=== PATIENT | female | born 1985 ===

== ENCOUNTER 2022-04-08 09:08 | Emergency (ER) | payer SELFPAY ==
[~2022-04-08] VITALS: Ht 167.7 cm; Wt 86.1 kg
[2022-04-08 09:36] LABS: BILIRUBIN,URINE NEGATIVE (NEGATIVE); CLARITY,URINE CLEAR; COLOR,URINE YELLOW; GLUCOSE, URINE (UA) NEGATIVE (NEGATIVE); KETONES,URINE NEGATIVE (NEGATIVE); LEUKOCYTE ESTERASE ,URINE NEGATIVE (NEGATIVE); NITRITE,URINE NEGATIVE (NEGATIVE); PROTEIN,URINE NEGATIVE (NEGATIVE)
[2022-04-08] MEDS ORDERED: KETOROLAC 60 MG/2 ML VIAL IM ONE (09:45)
--- NOTE | 2022-04-08 09:50 | ED GU-Female ---
General Chief Complaint: - Reproductive Stated Complaint: LT SIDE PAIN | PAIN WHEN URINATING Nursing Triage Note: HAVING BILATERAL LOW BACK PAIN GREATER ON THE LEFT FOR ABOUT 2 WEEKS, STATES SHE IS ALSO HAVING "NIGHT SWEATS" THE LAST FEW DAYS AND CHILLING. DENIES N/V ALL OTHER BODY SYMPTOMS WNL Source: patient Exam Limitations: no limitations History of Present Illness Date Seen by Provider: Apr 08, 2022 Time Seen by Provider: 09:37 Initial Comments Patient is a 36-year-old female who presents to the emergency room with a chief complaint of left flank pain. Patient states that she has had this for 2 weeks. She has not taken any medication for the pain. She states it is similar to pain that she has had previously with a "kidney infection". She states her pain worsened in the last 2 days, she is also developed dysuria in the last 2 days. She denies any known history of kidney stone. She states she has had some chills and sweating but has not taken her temperature. She is not nauseous. She is thirsty. She suffers from chronic constipation since her araseli cystectomy. She states movement makes the pain worse. No abnormal vaginal discharge, she is status post hysterectomy. All other review of systems reviewed and negative except as stated. Timing/Duration: other (2 weeks) Severity/Quality: severe, aching Location: left flank Radiation: none Sexual [place] History: not active Modifying Factors: Worsens With Movement Associated Symptoms: diaphoresis Allergies and Home Medications Allergies Coded Allergies: No Known Drug Allergies (Unverified , 04/08/22) Patient Home Medication List Home Medication List Reviewed: Yes Ondansetron (Ondansetron Odt) 4 Mg Tab.rapdis, 4 MG SL Q8H PRN for NAUSEA/VOMITING Prescribed by: LI ZEE on 04/08/22 1149 Oxycodone HCl/Acetaminophen (Percocet 5-325 mg Tablet) 1 Each Tablet, 1 TAB PO Q6H Prescribed by: LI ZEE on 04/08/22 1149 Tamsulosin HCl (Flomax) 0.4 Mg Cap, 0.4 MG PO HS Prescribed by: LI ZEE on 04/08/22 1149 Review of Systems Review of Systems Constitutional: see HPI, chills, diaphoresis EENTM: no symptoms reported Respiratory: no symptoms reported Cardiovascular: no symptoms reported Gastrointestinal: other (left flank pain) Genitourinary: burning : No Musculoskeletal: no symptoms reported Skin: no symptoms reported All Other Systemes Reviewed Negative Unless Noted: Yes Past Lrdgity-Rzyzpc-Kickce Hx Patient Social History Tobacco Use?: Yes Tobacco type used: Cigarettes Smoking Status: Current Someday Smoker Use of E-Cig and/or Vaping dev: No Substance use?: No Alcohol Use?: No Pt feels they are or have been: No Immunizations Up To Date Influenza Vaccine Up-to-Date: No; Not Current Past Medical History Surgery/Hospitalization HX: PARTIAL HYSTER, CHOLECYSTECTOMY, APPENDECTOMY Physical Exam Vital Signs Vital Signs - First Documented 04/08/22 09:19 Temp 36.0 Pulse 85 Resp 18 B/P (MAP) 208/122 (150) Pulse Ox 100 O2 Delivery Room Air Capillary Refill : Less Than 3 Seconds Height, Weight, BMI Height: '" Weight: lbs. oz. kg; 30.00 BMI Method: General Appearance: WD/WN, mild distress HEENT: PERRL/EOMI Cardiovascular: regular rate, rhythm, no murmur, other (Hypertensive) Respiratory: lungs clear, normal breath sounds, no respiratory distress, no accessory muscle use Gastrointestinal: normal bowel sounds, non tender, soft Back: CVA tenderness (L) Extremities: normal range of motion, non-tender, normal inspection, no pedal edema Neurologic/Psychiatric: alert, normal mood/affect, oriented x 3 Skin: normal color, warm/dry Progress/Results/Core Measures Suspected Sepsis SIRS Temperature: Pulse: 85 Respiratory Rate: 18 Blood Pressure 208 /122 Mean: 150 Laboratory Tests 04/08/22 10:28: Creatinine 0.85 Results/Orders Lab Results Laboratory Tests Test 04/08/22 09:20 04/08/22 10:28 Range/Units Urine Color YELLOW Urine Clarity CLEAR Urine pH 6.0 5-9 Urine Specific [place] >=1.030 1.016-1.022 Urine Protein NEGATIVE NEGATIVE Urine Glucose (UA) NEGATIVE NEGATIVE Urine Ketones NEGATIVE NEGATIVE Urine Nitrite NEGATIVE NEGATIVE Urine Bilirubin NEGATIVE NEGATIVE Urine Urobilinogen 0.2 < = 1.0 MG/DL Urine Leukocyte Esterase NEGATIVE NEGATIVE Urine RBC (Auto) TRACE-I H NEGATIVE Urine RBC 0-2 /HPF Urine WBC NONE /HPF Urine Squamous Epithelial Cells 2-5 /HPF Urine Crystals NONE /LPF Urine Bacteria NEGATIVE /HPF Urine Casts NONE /LPF Urine Mucus SMALL H /LPF Urine Culture Indicated NO Sodium Level 139 135-145 MMOL/L Potassium Level 3.8 3.6-5.0 MMOL/L Chloride Level 103 98-107 MMOL/L Carbon Dioxide Level 26 21-32 MMOL/L Anion Gap 10 5-14 MMOL/L Blood Urea Nitrogen 14 7-18 MG/DL Creatinine 0.85 0.60-1.30 MG/DL Estimat Glomerular Filtration Rate 90 BUN/Creatinine Ratio 16 Glucose Level 102 70-105 MG/DL Calcium Level 8.7 8.5-10.1 MG/DL My Orders Orders - LI ZEE MD Urinalysis (04/08/22 09:28) Urine Culture (04/08/22 09:28) Ketorolac Injection (Toradol Injection) (04/08/22 09:45) Abdomen/Kub 1view (04/08/22 10:00) Ct Abd/Pelvis Wo(Kidney Stone) (04/08/22 10:00) Ed Iv/Invasive Line Start (04/08/22 10:00) Basic Metabolic Panel (04/08/22 10:00) Ns Iv 1000 Ml (Sodium Chloride 0.9%) (04/08/22 10:00) Morphine Injection (Morphine Injection (04/08/22 10:42) Ondansetron Injection (Zofran Injectio (04/08/22 10:45) Medications Given in ED Current Medications Medications Dose Ordered Sig/Yan Route Start Time Stop Time Status Last Admin Dose Admin Ketorolac Tromethamine 60 mg ONCE ONCE IM 04/08/22 09:45 04/08/22 09:46 DC 04/08/22 10:17 60 MG Ondansetron HCl 4 mg ONCE ONCE IVP 04/08/22 10:45 04/08/22 10:46 DC 04/08/22 10:56 4 MG Vital Signs/I&O 04/08/22 09:19 Temp 36.0 Pulse 85 Resp 18 B/P (MAP) 208/122 (150) Pulse Ox 100 O2 Delivery Room Air Capillary Refill : Less Than 3 Seconds Blood Pressure Mean: 150 Progress Note : Time: 11:50 Progress Note Patient seen and evaluated, 36-year-old with left flank pain x2 weeks. Initial evaluation was with urinalysis which revealed some microscopic hematuria. Patient continued to have increasing left flank pain and therefore IV was placed with renal function panel, KUB and CT scan renal stone protocol. Patient was found to have a 5 mm left UVJ stone. No hydronephrosis, no other acute pathology. Stone is visualized on KUB. Patient's urine shows no signs of infection. She received morphine and Zofran for pain as well as 60 mg of Toradol IM. Renal function is normal. She is pain-free after morphine. She is comfortable with discharge to home. She has been advised to hydrate, she will be given Percocet, Zofran and Flomax for home. She is also advised if she gets a fever greater than 101 to come back to the emergency room if she does pass her stone. Patient verbalized understanding. She is comfortable with the plan of care. All questions are sought and answered. Diagnostic Imaging Diagonstic Imaging: Xray Comments [facility], [place], [place] NAME: [facility]ANDEN [facility] REC#: [id number] PT STATUS: REG ER : 1985 PHYSICIAN: LI ZEE MD ADMIT DATE: 04/08/22/ER Draft Date of Exam:04/08/22 ABDOMEN/KUB 1VIEW INDICATION: Left flank pain. FINDINGS: There is a small calculus noted region of the distal left ureter near the bladder. There are phleboliths present as well. No calculi are seen over the kidneys. IMPRESSION: Small left distal ureteral calculus. Dictated on workstation # [id number] Dict: 04/08/22 1054 Trans: 04/08/22 1057 [facility] [id number] Interpreted by: BERNADINE WEBB MD Electronically signed by: Diagonstic Imaging: CT [facility] [place] [place] NAME: [facility]BRANDEN [facility] REC#: [id number] PT STATUS: REG ER : 1985 PHYSICIAN: LI ZEE MD ADMIT DATE: 04/08/22/ER Draft Date of Exam:04/08/22 CT ABD/PELVIS WO(KIDNEY STONE) PROCEDURE: CT urinary tract, rule out kidney stone. TECHNIQUE: Multiple contiguous axial images were obtained through the abdomen and pelvis without the use of intravenous contrast. Auto Exposure Controls were utilized during the CT exam to meet ALARA standards for radiation dose reduction. INDICATION: Flank pain. Kidney stone. FINDINGS: The kidneys show no evidence of obstruction. No renal calculi. The ureters are not dilated. There is a 5 mm calculus in the distal left ureter at the level of the trigone. There are several phleboliths present. The bladder is decompressed. The lung bases are clear. The liver appears normal. The gallbladder is absent. The bile ducts are not dilated. The stomach and small bowel are not distended. There is a moderate amount of stool present throughout the colon. The appendix is absent. No evidence of colitis or diverticulitis. There is no free air or free fluid. No intra-abdominal adenopathy. The aorta is normal. No bony abnormalities. IMPRESSION: Nonobstructing 5 mm calculus in the distal left ureter. No calculi are seen within the kidneys. No hydronephrosis. Dictated on workstation # [id number] Dict: 04/08/22 1038 Trans: 04/08/22 1043 [id number] Interpreted by: BERNADINE WEBB MD Electronically signed by: Departure Impression Primary Impression: Kidney stone on left side Additional Impression: High blood pressure Qualified Codes: I10 - Essential (primary) hypertension Disposition: 01 HOME, SELF-CARE Condition: Improved Departure-Patient Inst. Decision time for Depature: 11:46 Referrals: [facility] [place]YSIC[place] (PCP) Primary Care Physician Patient Instructions: High Blood Pressure ED, Kidney Stones in Adults Add. Discharge Instructions: Drink lots of fluids to stay well-hydrated and help flush out your kidney stone. Strain your urine every time you pee. Take the oxycodone/acetaminophen 5 mg tablets every 6 hours as needed for severe pain. Take a daily stool softeners if you are having to take this medication. This is a narcotic. Do not drive and take this medication. It is very addictive. Take only when necessary. Flomax 0.4 mg every night to help increase urinary flow until you have passed your stone If you develop a fever, worsening pain, vomiting so that you cannot hold down your medications please come back to the emergency room for reevaluation. Scripts Tamsulosin HCl (Flomax) 0.4 Mg Cap 0.4 MG PO HS for 14 Days, #14 CAP Prov: LI ZEE MD 04/08/22 Ondansetron (Ondansetron Odt) 4 Mg Tab.rapdis 4 MG SL Q8H PRN for NAUSEA/VOMITING, #15 TAB Prov: LI ZEE MD 04/08/22 Oxycodone HCl/Acetaminophen (Percocet 5-325 mg Tablet) 1 Each Tablet 1 TAB PO Q6H for PAIN-MODERATE MDD 6 TABS, #12 TAB Prov: LI ZEE MD 04/08/22 Work/School Note: Work Release Form Date Seen in the Emergency Department: Apr 08, 2022 Return to Work: Apr 10, 2022 LI ZEE MD Apr 08, 2022 09:50
[2022-04-08 09:55] LABS: BACTERIA,URINE NEGATIVE /HPF; RBC,URINE 0-2 /HPF
[2022-04-08] MEDS ORDERED: NS IV 1000 ML 1,000 ML IV SCH (10:00)
[2022-04-08] MEDS ORDERED: morphine INJ 10 MG/ML 1ML (SYR OR VIAL) IVP STA (10:42)
--- NOTE | 2022-04-08 10:44 | Diagnostic Imaging Report ---
PROCEDURE: CT urinary tract, rule out kidney stone. TECHNIQUE: Multiple contiguous axial images were obtained through the abdomen and pelvis without the use of intravenous contrast. Auto Exposure Controls were utilized during the CT exam to meet ALARA standards for radiation dose reduction. INDICATION: Flank pain. Kidney stone. FINDINGS: The kidneys show no evidence of obstruction. No renal calculi. The ureters are not dilated. There is a 5 mm calculus in the distal left ureter at the level of the trigone. There are several phleboliths present. The bladder is decompressed. The lung bases are clear. The liver appears normal. The gallbladder is absent. The bile ducts are not dilated. The stomach and small bowel are not distended. There is a moderate amount of stool present throughout the colon. The appendix is absent. No evidence of colitis or diverticulitis. There is no free air or free fluid. No intra-abdominal adenopathy. The aorta is normal. No bony abnormalities. IMPRESSION: Nonobstructing 5 mm calculus in the distal left ureter. No calculi are seen within the kidneys. No hydronephrosis. Dictated by: Dictated on workstation # [id number]
[2022-04-08] MEDS ORDERED: ONDANSETRON 4 MG/2 ML (SDV) Z0FRAN IVP ONE (10:45)
--- NOTE | 2022-04-08 10:57 | Diagnostic Imaging Report ---
INDICATION: Left flank pain. FINDINGS: There is a small calculus noted region of the distal left ureter near the bladder. There are phleboliths present as well. No calculi are seen over the kidneys. IMPRESSION: Small left distal ureteral calculus. Dictated by: Dictated on workstation # [id number]
[2022-04-08 11:05] LABS: CALCIUM 8.7 MG/DL (8.5-10.1); CREATININE SERUM 0.85 MG/DL (0.60-1.30); POTASSIUM 3.8 MMOL/L (3.6-5.0)
[2022-04-08] MEDS ORDERED: TMSL.4C PO (11:49)
[2022-04-08] MEDS ORDERED: ONDA4TAB11 SL (11:49)
[2022-04-08] MEDS ORDERED: OXYC1TAB87 PO (11:49)
[2022-04-08 12:03] VITALS: BP 202/118
== END 2022-04-08 12:03 | disposition home or self-care (01) ==
LOC: ER 09:14
DX: N20.0 Calculus of kidney (principal); I10 Essential (primary) hypertension; F17.210 Nicotine dependence, cigarettes, uncomplicated; Z28.310 Unvaccinated for COVID-19
CPT/HCPCS: 36415; 74018; 74176; 80048; 81000; 87088

== ENCOUNTER 2022-04-27 03:59 | Emergency (ER) | payer SELFPAY ==
[~2022-04-27] VITALS: Ht 167 cm; Wt 86.1 kg
[~2022-04-27 03:59] MED LIST: ONDA4TAB11 SL; OXYC1TAB87 PO; TMSL.4C PO
[2022-04-27] MEDS ORDERED: LACTATED RINGERS 1,000 ML IV ONE (04:15)
[2022-04-27] MEDS ORDERED: KETOROLAC 30 MG/ML VIAL IVP ONE (04:15)
[2022-04-27 04:20] LABS: BASOPHILS % (AUTO) 0 % (0-10); EOSINOPHILS # (AUTO) 0.1 10^3/uL (0.0-0.3); EOSINOPHILS % (AUTO) 2 % (0-10); HEMATOCRIT 44 % (35-52); HEMOGLOBIN 14.4 g/dL (11.5-16.0); LYMPHOCYTES # (AUTO) 2.1 10^3/uL (1.0-4.0); LYMPHOCYTES % (AUTO) 26 % (12-44); MEAN CORPUSCULAR HEMOGLOBIN 29 pg (25-34); MEAN CORPUSCULAR HGB CONC 33 g/dL (32-36); MEAN CORPUSCULAR VOLUME 89 fL (80-99); MEAN PLATELET VOLUME 9.9 fL (9.0-12.2); MONOCYTES # (AUTO) 0.5 10^3/uL (0.0-1.0); MONOCYTES % (AUTO) 6 % (0-12); NEUTROPHILS # (AUTO) 5.2 10^3/uL (1.8-7.8); NEUTROPHILS % (AUTO) 66 % (42-75); PLATELET COUNT 334 10^3/uL (130-400); WHITE BLOOD COUNT 7.9 10^3/uL (4.3-11.0)
--- NOTE | 2022-04-27 04:24 | ED GU-Female ---
General Chief Complaint: Back Problems Stated Complaint: BACK PAIN Source: patient, old records (HINA JEAN DO) History of Present Illness Date Seen by Provider: Apr 27, 2022 Time Seen by Provider: 04:09 Initial Comments PT ARRIVES VIA POV C/O LEFT FLANK PAIN RADIATING TO LLQ FOR THE PAST FEW WEEKS C/O PAIN ON URINATION NO NAUSEA/VOMITING/DIARRHEA OR CONSTIPATION HAS NOT CHECKED TEMP AT ANY TIME. STATES SHE SWEATS AT NIGHT NO NOTED HEMATURIA NO VAGINAL DISCHARGE OR BLEEDING. PT WAS SEEN HERE FOR THE FIRST TIME ON 04/08/22 FOR THIS SAME PROBLEM AND WAS DX WITH A KIDNEY STONE. SHE REPORTED THAT HER SYMPTOMS HAD BEEN GOING ON FOR 2 WEEKS AT THE TIME OF THAT VISIT SHE WAS GIVEN RX'S FOR PAIN MEDICATION-OXYCODONE, FLOMAX AND ZOFRAN AND ADVISED TO FOLLOW UP WITH [facility]. SHE HAS NOT TAKEN ANYTHING FOR PAIN RECENTLY SHE HAS NOT ATTEMPTED TO FOLLOW UP WITH ANYONE AT ANYTIME, INSTRUCTED SYMPTOMS ARE NO DIFFERENT TONIGHT--STATES "I JUST GOT WORRIED BECAUSE I HAVEN'T PASSED IT" SHE DENIES ANY PRIOR HISTORY OF KIDNEY STONES STATES SHE WAS HOSPITALIZED A COUPLE OF YEARS AGO IN [place] WITH A "KIDNEY INFECTION" PT HAS HAD PRIOR HYSTERECTOMY WITH USO, CHOLECYSTECTOMY, APPENDECTOMY, BLADDER SUSPENSION AND VAGINAL REPAIR. PT JUST MOVED HERE 3 WEEKS AGO FROM [place] SHE DID NOT HAVE A DR. THERE EITHER (HINA JEAN DO) Initial Comments Agree with H & P (RUPERT DUMONT MD) Allergies and Home Medications Allergies Coded Allergies: No Known Drug Allergies (Unverified , 04/08/22) Patient Home Medication List Home Medication List Reviewed: Yes (RUPERT DUMONT MD) Ciprofloxacin HCl (Ciprofloxacin HCl) 500 Mg Tablet, 500 MG PO BID Prescribed by: HINA JEAN on 04/27/22 0506 Hydrocodone/Acetaminophen (Hydrocodone-Acetamin 5-325 mg) 5 Mg-325 Mg Tablet, 1 EACH PO Q4-6 HOURS PRN for PAIN Prescribed by: HINA JEAN on 04/27/22 0506 Ketorolac Tromethamine (Ketorolac Tromethamine) 10 Mg Tablet, 10 MG PO Q6H Prescribed by: HINA JEAN on 04/27/22 0506 Ondansetron (Ondansetron Odt) 4 Mg Tab.rapdis, 4 MG SL Q8H PRN for NAUSEA/VOMITING Prescribed by: LI ZEE on 04/08/22 1149 Ondansetron (Ondansetron Odt) 4 Mg Tab.rapdis, 4 MG PO Q4H Prescribed by: HINA JEAN on 04/27/22 0506 Oxycodone HCl/Acetaminophen (Percocet 5-325 mg Tablet) 1 Each Tablet, 1 TAB PO Q6H Prescribed by: LI ZEE on 04/08/22 1149 Tamsulosin HCl (Flomax) 0.4 Mg Cap, 0.4 MG PO HS Prescribed by: LI ZEE on 04/08/22 1149 Tamsulosin HCl (Flomax) 0.4 Mg Cap, 0.4 MG PO DAILY Prescribed by: HINA JEAN on 04/27/22 0506 Review of Systems Review of Systems Constitutional: see HPI, diaphoresis EENTM: no symptoms reported Respiratory: no symptoms reported Cardiovascular: no symptoms reported Gastrointestinal: see HPI, abdominal pain; No loss of appetite, No nausea, No vomiting Genitourinary: see HPI, dysuria, flank pain Musculoskeletal: see HPI, back pain Skin: no symptoms reported Psychiatric/Neurological: No Symptoms Reported Endocrine: No Symptoms Reported Hematologic/Lymphatic: No Symptoms Reported (HINA JEAN DO) Past [id number]-[id number] Hx Patient Social History Tobacco Use?: Yes Tobacco type used: Cigarettes Smoking Status: Current Someday Smoker Substance use?: Yes (DENIEWS) Substance type: Amphetamines, Methamphetamine Additional substance use comme: DENIES BUT UDS + FOR METHAMP HETAMINES/AMPHETAMINES 04/27/22 Alcohol Use?: No (DENIES) Pt feels they are or have been: No (HINA JEAN DO) Immunizations Up To Date First/Initial COVID19 Vaccinat: na (HINA JEAN DO) Past Medical History Surgery/Hospitalization HX: PARTIAL HYSTER, CHOLECYSTECTOMY, APPENDECTOMY, BLADDER SLING, VAGINAL REPAIR Surgeries: Yes Appendectomy, Bladder Surgery, Gallbladder, Hysterectomy, Oophorectomy Respiratory: No Cardiac: No Neurological: No HONEY BLENDER History: Hysterectomy Genitourinary: Yes Kidney Infection, Kidney Stones Gastrointestinal: No Musculoskeletal: No Endocrine: No HEENT: No Cancer: No Psychosocial: No Integumentary: No Blood Disorders: No (HINA JEAN DO) Family Medical History PAST SURGICAL HISTORY: -APPENDECTOMY -CHOLECYSTECTOMY -HYSTERECTOMY WITH UNILATERAL SALPINGO-OOPHORECTOMY ( DOES NOT KNOW WHICH OVARY WAS REMOVED) -BLADDER SLING/SUSPENSION -VAGINAL REPAIR (HINA JE[place] DO) Physical Exam Vital Signs Vital Signs - First Documented 04/27/22 04:16 Temp 37.0 Pulse 102 Resp 16 B/P (MAP) 181/115 (137) Pulse Ox 100 O2 Delivery Room Air (RUPERT DUMONT MD) Vital Signs Capillary Refill : (HINA JEAN DO) Height, Weight, BMI Height: '" Weight: lbs. oz. kg; 30.00 BMI Method: General Appearance: WD/WN, no apparent distress, other (FULL, HEAVY MAKE-UP AND VERY HEAVY PERFUME; VERY UNDER-DRESSED FOR THE WEATHER--TEMP OUTSIDE IS IN THE 20'S. MARKEDLY EXAGGERATED PAIN RESPONSE ) Cardiovascular: normal peripheral pulses, regular rate, rhythm, no murmur Respiratory: normal breath sounds, no respiratory distress, no accessory muscle use Gastrointestinal: normal bowel sounds, soft; No distended, No guarding, No rebound; tenderness (LLQ, LEFT MID ABDOMEN AND LEFT FLANK. ); No hernia, No mass Back: no vertebral tenderness, CVA tenderness (L) Extremities: normal inspection, normal capillary refill Neurologic/Psychiatric: no motor/sensory deficits, alert, oriented x 3 Skin: normal color (), warm/dry; No rash (HINA JEAN DO) Progress/Results/Core Measures Suspected Sepsis SIRS Temperature: Pulse: Respiratory Rate: Laboratory Tests 04/27/22 04:10: White Blood Count 7.9 Blood Pressure / Mean: Laboratory Tests 04/27/22 04:10: Creatinine 0.88, Platelet Count 334, Total Bilirubin 0.4 (HINA JEAN DO) Results/Orders Lab Results Laboratory Tests Test 04/27/22 04:10 04/27/22 04:12 Range/Units White Blood Count 7.9 4.3-11.0 10^3/uL Red Blood Count 4.94 3.80-5.11 10^6/uL Hemoglobin 14.4 11.5-16.0 g/dL Hematocrit 44 35-52 % Mean Corpuscular Volume 89 80-99 fL Mean Corpuscular Hemoglobin 29 25-34 pg Mean Corpuscular Hemoglobin Concent 33 32-36 g/dL Red Cell Distribution Width 13.9 10.0-14.5 % Platelet Count 334 130-400 10^3/uL Mean Platelet Volume 9.9 9.0-12.2 fL Immature Granulocyte % (Auto) 0 % Neutrophils (%) (Auto) 66 42-75 % Lymphocytes (%) (Auto) 26 12-44 % Monocytes (%) (Auto) 6 0-12 % Eosinophils (%) (Auto) 2 0-10 % Basophils (%) (Auto) 0 0-10 % Neutrophils # (Auto) 5.2 1.8-7.8 10^3/uL Lymphocytes # (Auto) 2.1 1.0-4.0 10^3/uL Monocytes # (Auto) 0.5 0.0-1.0 10^3/uL Eosinophils # (Auto) 0.1 0.0-0.3 10^3/uL Basophils # (Auto) 0.0 0.0-0.1 10^3/uL Immature Granulocyte # (Auto) 0.0 0.0-0.1 10^3/uL Sodium Level 140 135-145 MMOL/L Potassium Level 3.7 3.6-5.0 MMOL/L Chloride Level 104 98-107 MMOL/L Carbon Dioxide Level 27 21-32 MMOL/L Anion Gap 9 5-14 MMOL/L Blood Urea Nitrogen 13 7-18 MG/DL Creatinine 0.88 0.60-1.30 MG/DL Estimat Glomerular Filtration Rate 86 BUN/Creatinine Ratio 15 Glucose Level 94 70-105 MG/DL Calcium Level 9.0 8.5-10.1 MG/DL Corrected Calcium 8.6 8.5-10.1 MG/DL Total Bilirubin 0.4 0.1-1.0 MG/DL Aspartate Amino Transf (AST/SGOT) 17 5-34 U/L Alanine Aminotransferase (ALT/SGPT) 14 0-55 U/L Alkaline Phosphatase 65 40-136 U/L Total Protein 8.3 H 6.4-8.2 GM/DL Albumin 4.5 3.2-4.5 GM/DL Urine Color YELLOW Urine Clarity CLEAR Urine pH 6.5 5-9 Urine Specific [place] 1.025 H 1.016-1.022 Urine Protein NEGATIVE NEGATIVE Urine Glucose (UA) NEGATIVE NEGATIVE Urine Ketones NEGATIVE NEGATIVE Urine Nitrite NEGATIVE NEGATIVE Urine Bilirubin NEGATIVE NEGATIVE Urine Urobilinogen 0.2 < = 1.0 MG/DL Urine Leukocyte Esterase NEGATIVE NEGATIVE Urine RBC (Auto) TRACE-I H NEGATIVE Urine RBC 0-2 /HPF Urine WBC NONE /HPF Urine Squamous Epithelial Cells 10-25 H /HPF Urine Crystals NONE /LPF Urine Bacteria FEW H /HPF Urine Casts NONE /LPF Urine Mucus MODERATE H /LPF Urine Culture Indicated NO Urine Opiates Screen NEGATIVE NEGATIVE Urine Oxycodone Screen NEGATIVE NEGATIVE Urine Methadone Screen NEGATIVE NEGATIVE Urine Propoxyphene Screen NEGATIVE NEGATIVE Urine Barbiturates Screen NEGATIVE NEGATIVE Ur Tricyclic Antidepressants Screen NEGATIVE NEGATIVE Urine Phencyclidine Screen NEGATIVE NEGATIVE Urine Amphetamines Screen POSITIVE H NEGATIVE Urine Methamphetamines Screen POSITIVE H NEGATIVE Urine Benzodiazepines Screen NEGATIVE NEGATIVE Urine Cocaine Screen NEGATIVE NEGATIVE Urine Cannabinoids Screen NEGATIVE NEGATIVE (RUPERT DUMONT MD) Medications Given in ED Current Medications Medications Dose Ordered Sig/Yan Route Start Time Stop Time Status Last Admin Dose Admin Acetaminophen/ Hydrocodone Bitart 1 ea Q4H PRN PO 04/27/22 06:15 04/27/22 06:14 1 EA Ceftriaxone Sodium/Dextrose 50 ml @ 100 mls/hr ONCE ONCE IV 04/27/22 05:00 04/27/22 05:29 DC 04/27/22 05:02 100 MLS/HR Fentanyl Citrate 50 mcg ONCE ONCE IVP 04/27/22 05:00 04/27/22 05:01 DC 04/27/22 05:00 50 MCG Fentanyl Citrate 50 mcg ONCE ONCE IVP 04/27/22 06:15 04/27/22 06:16 DC 04/27/22 06:14 50 MCG Ketorolac Tromethamine 30 mg ONCE ONCE IVP 04/27/22 04:15 04/27/22 04:16 DC 04/27/22 04:18 30 MG Lactated Ringer's 1,000 ml @ 0 mls/hr Q0M ONCE IV 04/27/22 04:15 04/27/22 04:16 DC 04/27/22 04:19 0 MLS/HR Ondansetron HCl 4 mg ONCE ONCE IVP 04/27/22 05:45 04/27/22 05:46 DC 04/27/22 05:39 4 MG (RUPERT DUMONT MD) Vital Signs/I&O 04/27/22 04:16 Temp 37.0 Pulse 102 Resp 16 B/P (MAP) 181/115 (137) Pulse Ox 100 O2 Delivery Room Air (RUPERT DUMONT MD) Vital Signs/I&O Capillary Refill : (HINA JEAN DO) Progress Note : Progress Note GIVEN: -IV FLUIDS -TORADOL--NO RELIEF -FENTANYL -ROCEPHIN -FLOMAX MARKED DELAY IN OBTAINING CT REPORT INITIALLY SENT TO [facility], BUT HAD NOT BEEN EVEN BEEN ASSIGNED TO A RADIOLOGIST BY 607, SO NURSERYPERSON WILL SEND TO [facility] TO READ. REVIEWED ALL TEST RESULTS, NEED FOR FOLLOW UP WITH UROLOGIST, NEED TO ESTABLISH CARE WITH PCP FOR FURTHER EVALUATION OF BLOOD PRESSURE, AND RETURN PRECAUTIONS LIST OF LOCAL PROVIDERS SENT HOME WITH PT. DR. GONZALEZ IS NO LONGER TAKING NEW PATIENTS AND WILL BE RETIRING NEXT WEEK, ADVISED PT TO SEEK UROLOGY CARE AT [facility] OR [facility]. (HINA JEAN DO) Progress Note : Progress Note Signout from Dr. JEAN: Explained to patient in that the calcification seen is a phlebolith, and there are no stones as per radiology report. Offered patient a CT abdomen with contrast but she refused because she does not want to have contrast and also does not want to have another CT scan. Patient states that she is having some mild dysuria, so we will go ahead and agree with plan for antibiotics as outpatient. Advised patient to follow-up with urology as mentioned by Dr. JEAN, and also to follow-up with her PCP within the next 3 to 5 days. Discussed drug use with patient, and explained to her that her urine is positive for methamphetamines. Patient is denying that she took methamphetamines and states that she was in the presence of people who may have been smoking it. I also explained to the patient that drug use can trigger abdominal pain as well. Advised adequate water intake. -The patient was seen in the ED, and treated appropriately to presentation at a specific point in time. Patient is informed that there is a possibility that disease and illness can evolve and change in acuity rapidly or slowly after patient is discharged from the ER. Precautionary advice given to the patient for immediate return to ER if symptoms worsen or do not resolve, and to seek emergency care sooner rather than later. Pt also advised on the importance of PCP follow up and compliance with management and follow up plan with PCP and/or specialist, as this is part of the management plan. Pt verbally expressed understanding. (RUPERT DUMONT MD) Diagnostic Imaging Comments KUB--CALCIFICATION IN LEFT PELVIS, PENDING RADIOLOGIST REVIEW CT ABDOMEN/PELVIS--PER [facility] VIA FAX AT -LEFT DISTAL URETERAL CALCULUS Reviewed: Reviewed by Me (HINA EJAN DO) Diagonstic Imaging: Xray, CT Plain Films/CT/US/NM/MRI: abdomen Comments [facility], [place] NAME: BRANDEN ROCHA [facility] REC#: [id number] PT STATUS: REG ER : 1985 PHYSICIAN: HINA JEAN DO ADMIT DATE: 04/27/22/ER Draft Date of Exam:04/27/22 CT ABD/PELVIS WO(KIDNEY STONE) CLINICAL INDICATION: Patient with flank pain. Stone suspected. Exam: CT exam of the abdomen and pelvis is performed without IV or oral contrast using stone protocol. Coronal and sagittal reformatted images were created. Auto Exposure Controls were utilized during the CT exam to meet ALARA standards for radiation dose reduction. Comparisons: CT scan of the abdomen and pelvis without contrast dated 04/08/2022. Findings: Visualized lung bases: Unremarkable. Liver: Unremarkable as visualized. Gallbladder: Cholecystectomy changes are seen. Pancreas: Unremarkable as visualized. Spleen: Unremarkable as visualized. Adrenal glands: Unremarkable. Kidneys/ ureters: It appears as though the calcifications in the pelvis region are outside of the confines of the distal ureters and suspected to represent phleboliths. There are no new stones involving the kidneys or ureters seen. Both kidneys are otherwise unremarkable. There is no hydronephrosis or periureteral perinephric fat stranding. Aorta: Unremarkable as visualized. Intraabdominal/ retroperitoneal contents: Unremarkable. Intestines: Unremarkable as visualized. Appendix: Surgically absent. Bladder: Unremarkable as visualized. Pelvic organs: Unremarkable as visualized. Extra abdominal/ pelvis regions: Unremarkable. Abdominal wall: Unremarkable. Bones: Unremarkable. Impression: 1: There are no stones seen in the distal ureters. Calcifications in the pelvis is suspected to represent phleboliths. Kidneys and ureters show no significant abnormality on this exam. CT scan of the abdomen and pelvis with contrast and delayed imaging would help better evaluate if there is continued concern for stones or blood in urine. 2: Otherwise, there is no other concern for interval acute abnormality. 3: The remainder of this exam shows no significant interval change compared to the prior study of comparison. Dictated on workstation # [id number] Dict: 04/27/2216 Trans: 04/27/22623 CHANTELLE [id number] Interpreted by: FLAVIO OLIVO MD Electronically signed by: [employer] [facility] [place], [place] NAME: ROCHABRANDEN [facility] REC#: [id number] PT STATUS: REG ER : 1985 PHYSICIAN: HINA JEAN DO ADMIT DATE: 04/27/22/ER Draft Date of Exam:04/27/22 ABDOMEN/KUB 1VIEW CLINICAL INDICATION: Patient with calcification in the left pelvis. EXAM: X-ray of the abdomen with multiple supine and upright views. COMPARISON: X-ray of the abdomen dated 04/08/2022. FINDINGS: There is a nonobstructed bowel gas pattern. There is no evidence of abdominal free air. There is a small-to- moderate amount of stool throughout the abdomen. Surgical clips are seen overlying the right upper quadrant which could be related to cholecystectomy changes. There are small calcifications involving left and right sides of the pelvis which is not significantly changed in the interim. The visualized bones and extra abdominal soft tissues are unremarkable. IMPRESSION: There are several calcifications in the right and left sides of the pelvis, which have not significantly changed in the interim. These may represent phleboliths, but if there is concern for stone in distal ureter, CT scan would better evaluate. Dictated on workstation # [id number] Dict: 04/27/22607 Trans: 04/27/22612 CHANTELLE [id number] Interpreted by: FLAVIO OLIVO MD Electronically signed by: [employer] [facility], [facility]. [place], [place] NAME: BRANDEN ROCHA [facility] REC#: [id number] PT STATUS: REG ER : 1985 PHYSICIAN: HINA JEAN DO ADMIT DATE: 04/27/22/ER Draft Date of Exam:04/27/22 ABDOMEN/KUB 1VIEW CLINICAL INDICATION: Patient with calcification in the left pelvis. EXAM: X-ray of the abdomen with multiple supine and upright views. COMPARISON: X-ray of the abdomen dated 04/08/2022. FINDINGS: There is a nonobstructed bowel gas pattern. There is no evidence of abdominal free air. There is a small-to- moderate amount of stool throughout the abdomen. Surgical clips are seen overlying the right upper quadrant which could be related to cholecystectomy changes. There are small calcifications involving left and right sides of the pelvis which is not significantly changed in the interim. The visualized bones and extra abdominal soft tissues are unremarkable. IMPRESSION: There are several calcifications in the right and left sides of the pelvis, which have not significantly changed in the interim. These may represent phleboliths, but if there is concern for stone in distal ureter, CT scan would better evaluate. Dictated on workstation # [id number] Dict: 04/27/2208 Trans: 04/27/22 0613 CHANTELLE [id number] Interpreted by: FLAVIO OLIVO MD Electronically signed by: (RUPERT DUMONT MD) Departure Impression Primary Impression: Methamphetamine use Additional Impression: Phlebolithiasis Disposition: 01 HOME, SELF-CARE Condition: Stable Departure-Patient Inst. Referrals: NO,LOCAL PHYSICIAN (PCP/Family) Primary Care Physician Patient Instructions: DASH Diet, Drug Abuse and Drug Addiction (DC), High Blood Pressure ED, How to Strain Your Urine, Methamphetamine Add. Discharge Instructions: STRAIN ALL URINE, RETURN ANY STONES TO UROLOGIST OFFICE NO DRUGS LOTS OF CLEAR LIQUIDS FOLLOW UP WITH UROLOGIST OF CHOICE THIS WEEK FOR FURTHER CARE. YOU MAY TRY UROLOLGY SERVICES AT [facility], [facility] IN [place], [facility] IN [place], OR ANY FACILITY OF CHOICE. CALL THIS MORNING TO MAKE AN APPOINTMENT YOU NEED TO FOLLOW UP WITH THIS WEEK TO ESTABLISH PRIMARY CARE FOR FURTHER EVALUATION OF YOUR BLOOD PRESSURE All discharge instructions reviewed with patient and/or family. Voiced understanding. Scripts Ondansetron (Ondansetron Odt) 4 Mg Tab.rapdis 4 MG PO Q4H for Nausea/Vomiting, #10 TAB Prov: HINA JEAN DO 04/27/22 Hydrocodone/Acetaminophen (Hydrocodone-Acetamin 5-325 mg) 5 Mg-325 Mg Tablet 1 EACH PO Q4-6 HOURS PRN for PAIN, #10 TAB Prov: HINA JEAN DO 04/27/22 Ketorolac Tromethamine (Ketorolac Tromethamine) 10 Mg Tablet 10 MG PO Q6H for Pain, #15 TAB Prov: HINA JEAN DO 04/27/22 Tamsulosin HCl (Flomax) 0.4 Mg Cap 0.4 MG PO DAILY, #10 CAP Prov: HINA JEAN DO 04/27/22 Ciprofloxacin HCl (Ciprofloxacin HCl) 500 Mg Tablet 500 MG PO BID, #14 TAB Prov: HINA JEAN DO 04/27/22 TEDHINAMino Garrido DO Apr 27, 2022 04:24 RUPERT DUMONT MD Apr 27, 2022 07:01
[2022-04-27 04:28] LABS: BILIRUBIN,URINE NEGATIVE (NEGATIVE); CLARITY,URINE CLEAR; COLOR,URINE YELLOW; GLUCOSE, URINE (UA) NEGATIVE (NEGATIVE); KETONES,URINE NEGATIVE (NEGATIVE); LEUKOCYTE ESTERASE ,URINE NEGATIVE (NEGATIVE); NITRITE,URINE NEGATIVE (NEGATIVE); PH,URINE 6.5 (5-9); PROTEIN,URINE NEGATIVE (NEGATIVE)
[2022-04-27 04:29] LABS: ALBUMIN 4.5 GM/DL (3.2-4.5); POTASSIUM 3.7 MMOL/L (3.6-5.0)
[2022-04-27 04:32] LABS: TOTAL PROTEIN 8.3 GM/DL (6.4-8.2)
[2022-04-27 04:34] LABS: BILIRUBIN,TOTAL 0.4 MG/DL (0.1-1.0)
[2022-04-27 04:36] LABS: CREATININE SERUM 0.88 MG/DL (0.60-1.30)
[2022-04-27 04:45] LABS: AMPHETAMINE SCREEN, URINE POSITIVE (NEGATIVE); BENZODIAZEPINES SCREEN URINE NEGATIVE (NEGATIVE); CANNABINOID SCREEN, URINE NEGATIVE (NEGATIVE); COCAINE SCREEN URINE NEGATIVE (NEGATIVE)
[2022-04-27 04:46] LABS: BACTERIA,URINE FEW /HPF; BARBITURATE SCREEN URINE NEGATIVE (NEGATIVE); METHADONE STAT NEGATIVE (NEGATIVE); OPIATE SCREEN URINE NEGATIVE (NEGATIVE); OXYCODONE STAT NEGATIVE (NEGATIVE); PROPOXYPHENE STAT NEGATIVE (NEGATIVE); RBC,URINE 0-2 /HPF; TRICYCLIC ANTIDEPRESSANTS SCRE NEGATIVE (NEGATIVE)
[2022-04-27] MEDS ORDERED: cefTRIAXone 1 GM PRE-MIX 50 ML IV ONE (05:00)
[2022-04-27] MEDS ORDERED: TAMSULOSIN 0.4 MG (FLOMAX) CAP PO SCH (05:00)
[2022-04-27] MEDS ORDERED: fentaNYL INJ 100 MCG/2 ML AMP IVP ONE ×2 (05:00→06:15)
[2022-04-27] MEDS ORDERED: ONDA4TAB11 PO (05:06)
[2022-04-27] MEDS ORDERED: KETO10TA PO (05:06)
[2022-04-27] MEDS ORDERED: CIPR500T5 PO (05:06)
[2022-04-27] MEDS ORDERED: ACHD5005 PO (05:06)
[2022-04-27] MEDS ORDERED: TMSL.4C PO (05:06)
[2022-04-27] MEDS ORDERED: ONDANSETRON 4 MG/2 ML (SDV) Z0FRAN IVP ONE (05:45)
[2022-04-27] MEDS ORDERED: RX-ONDANSETRON 4 MG ODT (ZOFRAN) PPK #4 PO STA (06:07)
--- NOTE | 2022-04-27 06:14 | Diagnostic Imaging Report ---
CLINICAL INDICATION: Patient with calcification in the left pelvis. EXAM: X-ray of the abdomen with multiple supine and upright views. COMPARISON: X-ray of the abdomen dated 04/08/2022. FINDINGS: There is a nonobstructed bowel gas pattern. There is no evidence of abdominal free air. There is a small-to- moderate amount of stool throughout the abdomen. Surgical clips are seen overlying the right upper quadrant which could be related to cholecystectomy changes. There are small calcifications involving left and right sides of the pelvis which is not significantly changed in the interim. The visualized bones and extra abdominal soft tissues are unremarkable. IMPRESSION: There are several calcifications in the right and left sides of the pelvis, which have not significantly changed in the interim. These may represent phleboliths, but if there is concern for stone in distal ureter, CT scan would better evaluate. Dictated by: Dictated on workstation # [id number]
--- NOTE | 2022-04-27 06:25 | Diagnostic Imaging Report ---
CLINICAL INDICATION: Patient with flank pain. Stone suspected. Exam: CT exam of the abdomen and pelvis is performed without IV or oral contrast using stone protocol. Coronal and sagittal reformatted images were created. Auto Exposure Controls were utilized during the CT exam to meet ALARA standards for radiation dose reduction. Comparisons: CT scan of the abdomen and pelvis without contrast dated 04/08/2022. Findings: Visualized lung bases: Unremarkable. Liver: Unremarkable as visualized. Gallbladder: Cholecystectomy changes are seen. Pancreas: Unremarkable as visualized. Spleen: Unremarkable as visualized. Adrenal glands: Unremarkable. Kidneys/ ureters: It appears as though the calcifications in the pelvis region are outside of the confines of the distal ureters and suspected to represent phleboliths. There are no new stones involving the kidneys or ureters seen. Both kidneys are otherwise unremarkable. There is no hydronephrosis or periureteral perinephric fat stranding. Aorta: Unremarkable as visualized. Intraabdominal/ retroperitoneal contents: Unremarkable. Intestines: Unremarkable as visualized. Appendix: Surgically absent. Bladder: Unremarkable as visualized. Pelvic organs: Unremarkable as visualized. Extra abdominal/ pelvis regions: Unremarkable. Abdominal wall: Unremarkable. Bones: Unremarkable. Impression: 1: There are no stones seen in the distal ureters. Calcifications in the pelvis is suspected to represent phleboliths. Kidneys and ureters show no significant abnormality on this exam. CT scan of the abdomen and pelvis with contrast and delayed imaging would help better evaluate if there is continued concern for stones or blood in urine. 2: Otherwise, there is no other concern for interval acute abnormality. 3: The remainder of this exam shows no significant interval change compared to the prior study of comparison. Dictated by: Dictated on workstation # [id number]
[2022-04-27 06:59] VITALS: BP 175/105
== END 2022-04-27 06:59 | disposition home or self-care (01) ==
LOC: EDUNIT# 03:59 → ER 04:00
DX: I87.8 Other specified disorders of veins (principal); F15.90 Other stimulant use, unspecified, uncomplicated; F17.210 Nicotine dependence, cigarettes, uncomplicated; Z90.49 Acquired absence of other specified parts of digestive tract; Z28.310 Unvaccinated for COVID-19
CPT/HCPCS: 36415; 74018; 74176; 80053; 80306; 81000; 84703; 85025